=== PATIENT | female | born 1960 | race Asian ===

== ENCOUNTER 2016-08-12 08:53 | Emergency (ER) | payer MEDICARE, OTHER ==
[~2016-08-12] VITALS: Ht 162.6 cm; Wt 87.5 kg
[~2016-08-12 08:53] MED LIST: ARIP15TA2 PO; BENZ1TAB7 PO; ESCI20TA PO; LEVO112T2 PO; LEVO500T72 PO
[2016-08-12 08:56] VITALS: Ht 162.6 cm; Wt 87.5 kg
[2016-08-12] MEDS ORDERED: HC.5O30 TOP (09:19)
[2016-08-12] MEDS ORDERED: BEN25 PO (09:19)
--- NOTE | 2016-08-12 09:22 | ERD ---
ER Documentation Chief Complaint Date/Time DATE: 08/12/16 TIME: 09:19 Chief Complaint Complains of a rash to both arms since this week HPI 55-year-old female presents complaining of itchy rash to her bilateral forearms as well as behind her bilateral ears that she has had for one week. She states they are itchy but she denies any pain. She denies any swelling of her lips or tongue or difficulty breathing. She denies fever. She denies any new soaps or irritants that she can think of. She has not tried any medication for this. ROS All systems reviewed and are negative except as per history of present illness. Medications Home Meds Active Scripts Hydrocortisone* Topical (Hydrocortisone* Topical) 0.5%- 28.35 Gm Oint, 1 APPLIC TOP BID for 7 Days, TUB Prov:WOLF PEARSON PA-C 08/12/16 Diphenhydramine Hcl* (Benadryl*) 25 Mg Cap, 25 MG PO Q6, #30 CAP Prov:WOLF PEARSON PA-C 08/12/16 Reported Medications Escitalopram Oxalate* (Lexapro*) 20 Mg Tablet, 20 MG PO AM, TAB 05/20/14 Levofloxacin* (Levaquin*) 500 Mg Tablet, 500 MG PO DAILY, TAB 05/20/14 Levothyroxine Sodium* (Synthroid*) 112 Mcg Tablet, 112 MCG PO EVERY OTHER DAY, TAB 05/10/14 Aripiprazole* (Abilify*) Unknown Strength Tablet, 15 MG PO EVERY OTHER DAY, TAB 05/10/14 Benztropine Mesylate* (Cogentin*) 1 Mg Tab, 1 MG PO BID 11/25/12 Allergies Allergies: Coded Allergies: codeine (Verified Allergy, Unknown, 05/20/14) PMhx/Soc History of Surgery: Yes (S/P APPENDECTOMY, THYROIDECTOMY) Anesthesia Reaction: No Hx Neurological Disorder: No Hx Respiratory Disorders: No Hx Cardiac Disorders: Yes (HTN) Hx Psychiatric Problems: Yes (DEPRESSION) Hx Miscellaneous Medical Probl: No Hx Alcohol Use: Yes (OCCASSIONALLY) Hx Substance Use: No Hx Tobacco Use: Yes Smoking Status: Current every day smoker FmHx Family History: No diabetes Physical Exam Vitals Vital Signs Date Time Temp Pulse Resp B/P Pulse Ox O2 Delivery O2 Flow Rate FiO2 08/12/16 08:56 98.0 66 20 185/73 99 Physical Exam General: well developed, well nourished, alert, nontoxic, no distress Head: normocephalic, atraumatic Eyes: PERRL, normal conjunctiva Respiratory: Clear to auscaultation bilaterally, speaks in full sentences, no use of accesory muscles or labored breathing, no rales, ronchi, or wheezing Cardiovascular: RRR, No murmurs Skin: Mild macular papular hive-like rash on bilateral forearms as well as the high in the ears, no vesicles, no pustules, Procedures/MDM Patient presents with mild dermatitis. She has no respiratory distress or signs of anaphylaxis. She was given a prescription for Benadryl and hydrocortisone cream to apply.Recommended this patient follow up with her primary care doctor within 48 hours or return to the emergency room for any worsening of symptoms. However this time I do believe there is suitable for outpatient management. I answered all their questions and they agreed with the plan and were discharged home. Departure Diagnosis: Primary Impression: Rash Condition: Stable Patient Instructions: Self-Care for Skin Rashes Additional Instructions: Call your primary care doctor TOMORROW for an appointment during the next 1-2 days.See the doctor sooner or return here if your condition worsens before your appointment time. WOLF PEARSON PA-C Aug 12, 2016 09:22
== END 2016-08-12 09:49 | disposition home or self-care (01) ==
LOC: FTE 08:53
DX: R21 Rash and other nonspecific skin eruption (principal); I10 Essential (primary) hypertension; F17.210 Nicotine dependence, cigarettes, uncomplicated
CPT/HCPCS: 99283